=== PATIENT | male | born 1970 | race African-American/Black ===

== ENCOUNTER 2018-09-11 18:22 | Emergency (ER) | payer OTHER ==
[~2018-09-11] VITALS: Ht 172.7 cm; Wt 79.4 kg
[2018-09-11] MEDS ORDERED: NORVASC10 MG PO (18:26)
[2018-09-11] MEDS ORDERED: CLONIDINE0.1 PO (18:57)
[2018-09-11] MEDS ORDERED: ATIVAN0.5 MG PO (18:57)
[2018-09-11] MEDS ORDERED: ATENOLOL 50MG T50 M1 PO (19:25)
[2018-09-11 21:30] VITALS: BP 163/78
--- NOTE | 2018-09-11 22:44 | EKG ---
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[employer]: juanjose : 1970 Requested By: Titus Mustafa Order Number: [id number] MD: Charles Nuñez Measurements Intervals [place] Rate: 99 P: 68 [place]: 125 QRS: 62 QRSD: 87 T: 27 QT: 340 QTc: 437 Interpretive Statements Sinus rhythm No previous ECG available for comparison Electronically Signed On 09-11-2018 22:44:32 CDT by Charles Nuñez [email or web address] ��������������������������������������������� <ELECTRONICALLY SIGNED> ���������������������������������������� By: Charles Nuñez MD ��������������������������������������������� 09/11/18 2244 1914 13 Charles Nuñez MD /EPI
== END 2018-09-11 21:30 | disposition home or self-care (01) ==
LOC: ER 18:22
DX: I10 Essential (primary) hypertension (principal)